=== PATIENT | female | born 1965 | race Caucasian/White ===

== ENCOUNTER → 2016-05-30 | Outpatient (CLI) | payer OTHER ==
[~2016-05-30] MED LIST: AUGMENTIN 875-1 EACH PO; CALCIUM 600 +1 EAC3 PO; LEVOTHYROXINE75 MCG PO; LISINOPRIL10 MG PO; NORCO 7.5-3251 EACH PO; PRAVASTATIN SOD10 MG PO
== END ==
LOC: US 08:15
DX: Z12.31 Encounter for screening mammogram for malignant neoplasm of breast (principal); K80.20 Calculus of gallbladder without cholecystitis without obstruction; N28.89 Other specified disorders of kidney and ureter; K82.8 Other specified diseases of gallbladder
CPT/HCPCS: 74170; 76705; G0202; J7050; Q9962

== ENCOUNTER → 2016-06-06 | Outpatient (CLI) | payer OTHER | LOC: MAMO 10:00 | DX: R92.8 Other abnormal and inconclusive findings on diagnostic imaging of breast (principal); N63 Unspecified lump in breast | CPT/HCPCS: 76641-RT; G0206 ==

== ENCOUNTER 2016-06-07 03:07 | Emergency (ER) | payer OTHER ==
[2016-06-07 03:48] LABS: HEMOGLOBIN 13.6 gm/dl (12.3-15.3); RED BLOOD COUNT 4.74 M/UL (4.00-5.10); WHITE BLOOD COUNT 7.3 K/UL (4.5-11.0)
[2016-06-07 04:08] LABS: BUN/CREATININE RATIO 21 (0-10)
[2016-06-12] MEDS ORDERED: CALCIUM 600 +1 EAC3 PO (07:56)
[2016-06-12] MEDS ORDERED: AUGMENTIN 875-1 EACH PO (07:56)
[2016-06-12] MEDS ORDERED: LEVOTHYROXINE75 MCG PO (07:57)
[2016-06-12] MEDS ORDERED: LISINOPRIL10 MG PO (07:57)
[2016-06-12] MEDS ORDERED: PRAVASTATIN SOD10 MG PO (07:58)
[2016-06-12] MEDS ORDERED: NORCO 7.5-3251 EACH PO (14:08)
== END 2016-06-07 05:50 | disposition home or self-care (01) ==
LOC: ER1 03:07
PROVIDERS: Emergency Medicine
DX: K80.70 Calculus of gallbladder and bile duct without cholecystitis without obstruction (principal)
CPT/HCPCS: 36415; 80053; 83690; 85025; 96361; 96365; 96375; 96376; 99284; J2405; J2550; J7030

== ENCOUNTER → 2016-06-12 | Day surgery (SDC) | payer OTHER | END | disposition home or self-care (01) | LOC: OR 06:56 | PROVIDERS: Surgery | PROC: 0FT44ZZ Resection of Gallbladder, Percutaneous Endoscopic Approach (ICD-10-PCS; principal; 2016-06-12 09:30) | DX: K80.10 Calculus of gallbladder with chronic cholecystitis without obstruction (principal); I10 Essential (primary) hypertension; G47.30 Sleep apnea, unspecified; E03.9 Hypothyroidism, unspecified; Z85.528 Personal history of other malignant neoplasm of kidney; Z87.891 Personal history of nicotine dependence; Z82.49 Family history of ischemic heart disease and other diseases of the circulatory system; Z79.2 Long term (current) use of antibiotics; Z79.899 Other long term (current) drug therapy; Z98.51 Tubal ligation status; Z98.890 Other specified postprocedural states; Z99.89 Dependence on other enabling machines and devices | CPT/HCPCS: J0295; J1100; J1885; J2250; J2405; J3010; J7030; J7050; J7120; Q9962 ==

== ENCOUNTER → 2016-11-09 | Outpatient (CLI) | payer OTHER | LOC: LAB 14:52 | PROVIDERS: Internal Medicine Nephrology | DX: N18.3 Chronic kidney disease, stage 3 (moderate) (principal) | CPT/HCPCS: 36415; 80053; 82570; 84156 ==

== ENCOUNTER 2021-03-22 21:13 | Emergency (ER) | payer OTHER ==
[2021-03-22 21:33] LABS: HEMOGLOBIN 13.3 gm/dl (12.3-15.3); RED BLOOD COUNT 4.65 M/UL (4.00-5.10)
[2021-03-22] MEDS ORDERED: BENZONATATE200 MG PO (23:07)
[2021-03-22] MEDS ORDERED: ZOFRAN 4 MG TAB4 MG PO (23:07)
== END 2021-03-23 00:15 | disposition home or self-care (01) ==
LOC: ER1 21:13
PROVIDERS: Physician Assistant
DX: U07.1 COVID-19 (principal)
CPT/HCPCS: 80053; 85025; 96374; 96375; 99284; C9113; J2405; U0002

== ENCOUNTER → 2021-10-09 | Outpatient (CLI) | payer OTHER ==
[~2021-10-09] MED LIST changes: +BENZONATATE200 MG PO; +ZOFRAN 4 MG TAB4 MG PO
== END ==
LOC: EXRD 10-03 14:45
DX: N18.31 Chronic kidney disease, stage 3a (principal); E03.9 Hypothyroidism, unspecified; E78.2 Mixed hyperlipidemia
CPT/HCPCS: 93926; 93971

== ENCOUNTER → 2021-11-14 | Outpatient (CLI) | payer OTHER | LOC: HEART 5 11-08 10:30 | DX: I73.9 Peripheral vascular disease, unspecified (principal) ==